=== PATIENT | female | born 1955 | race Caucasian/White ===

== ENCOUNTER 2022-06-27 08:02 | Outpatient (CLI) | payer MEDICARE, SELFPAY ==
--- NOTE | 2022-06-27 08:13 | AAVD_ITS ---
Reason For Study: Stricture of Artery Aorta Measurements Aorta Doppler Measurements Proximal aorta measures1.80cm x 1.72cm. in cross- Peak systolic flow velocities within the proximal sectional axis. aorta measure 77 cm/sec. Proximal aorta measures1.95cm. in longitudinal Peak systolic flow velocities within the mid aorta axis. measure 104 cm/sec. Mid aorta measures1.84cm x 1.98cm. in cross- Peak systolic flow velocities within the distal sectional axis. aorta measure 38 cm/sec. Mid aorta measures1.88cm. in longitudinal axis. Distal aorta measures2.07cm x 2.08cm. in cross- sectional axis. Distal aorta measures1.77cm. in longitudinal axis. Left Iliac Artery Left iliac artery measures 0.78cm x 0.79 cm. in the cross-sectional axis. Left iliac artery measures 0.67 cm. in the longitudinal axis. Peak systolic velocity in the left iliac artery measures 290 cm/sec. Right Iliac Artery Right iliac artery measures 0.87cm x 0.87 cm. in the cross-sectional axis. Right iliac artery measures 0.78 cm. in the longitudinal axis. Peak systolic velocity in the right iliac artery measures 72 cm/sec. Procedure Aorta IVC Iliac vasculature or bypass grafts [id number]. Exam performed in department. VL/Abd Aortic/IVC Duplex scan Interpretation Summary No aortoiliac aneurysm. Left common iliac with severe stenosis. Ordering Physician: Santiago Ly Referring Physician: Danielle Leonardo Performed By: Savi Fine, ALAYNACS, RVT
--- NOTE | 2022-06-27 08:13 | CDU_ITS ---
Reason For Study: Stenosis Rt. Velocities/BP Lt. Velocities/BP Prox CCA 70/19 cm/sec. Prox CCA 97/27 cm/sec. Mid CCA 62/20 cm/sec. Mid CCA 72/18 cm/sec. Dist CCA 53/21 cm/sec. Dist CCA 65/24 cm/sec. Prox ICA 50/20 cm/sec. Prox ICA 57/22 cm/sec. Mid ICA 69/24 cm/sec. Mid ICA 78/23 cm/sec. Dist ICA 82/34 cm/sec. Dist ICA 116/30 cm/sec. Rt. ICA/CCA = 1.3. Lt. ICA/CCA = 1.6. Prox ECA 66/9 cm/sec. Prox ECA 50/10 cm/sec. Rt. Vert. 52/20 cm/sec. Lt. Vert. 59/23 cm/sec. Right Extracranial There is intimal thickening but no significant atherosclerotic plaque noted in the right common carotid artery. There is homogeneous, smooth atherosclerotic plaque noted in the right internal carotid artery. There is intimal thickening but no significant atherosclerotic plaque noted in the right external carotid artery. Antegrade flow is noted in the right vertebral artery. Left Extracranial There is heterogeneous, smooth atherosclerotic plaque noted in the left common carotid artery. There is heterogeneous, irregular atherosclerotic plaque noted in the left internal carotid artery. There is intimal thickening but no significant atherosclerotic plaque noted in the left external carotid artery. Antegrade flow is noted in the left vertebral artery. Procedure Carotid Duplex 12949. This is a Carotid Duplex examination using B-mode, color flow and specral Doppler. Exam performed in department. VL/Carotid Duplex Ultrasound Interpretation Summary Mild (<50%) stenosis right extracranial internal carotid. Mild (<50%) stenosis left extracranial internal carotid. Flow within the vertebral arteries is antegrade bilaterally. Ordering Physician: Santiago Ly Referring Physician: Danielle Leonardo Performed By: Savi Fine, RDCS, RVT
--- NOTE | 2022-06-27 08:14 | ADUL_ITS ---
Reason For Study: Stricture of Artery Left Velocities Ext Iliac Artery, dist = 36 cm./sec. Common Femoral Artery, mid = 54 cm./sec. Supf. Femoral Artery, prox = 74 cm./sec. Supf. Femoral Artery, mid = 50 cm./sec. Supf. Femoral Artery, dist = 38 cm./sec. Profunda Femoral Artery = 46 cm./sec. Popliteal Artery, mid = 33 cm./sec. Ant.Tibial Artery, prox = 24 cm./sec. Ant Tibial Artery, mid = 22 cm./sec. Ant. Tibial Artery, distal = 20 cm./sec. Post. Tibial Artery, prox = 21 cm./sec. Post Tibial Artery, mid = 17 cm./sec. Post Tibial Artery, dist. = 14 cm./sec. Peroneal Artery, prox = 15 cm./sec. Peroneal Artery, mid = 16 cm./sec. Peroneal Artery,dist. = 12 cm./sec. Procedure Exam performed in department. / Art Duplex Unilat Lower Ext Interpretation Summary Left leg with no stenosis seen. Ordering Physician: Santiago Ly Referring Physician: Danielle Leonardo Performed By: Savi Fine, EMELI, RVT
--- NOTE | 2022-06-27 08:14 | ART_ITS ---
Reason For Study: PAD Procedure A bilateral lower extremity continuous wave Doppler with analog waveform analysis and ankle brachial indexes. Left Segmental Pressures Left brachial= 129mmHg. Left posterior tibial artery = 91mmHg. Left dorsalis pedis artery = 88mmHg. Left digit = 61 mmHg. Right Segmental Pressures Right brachial= 129mmHg. Right posterior tibial artery = 119mmHg. Right dorsalis pedis artery = 115mmHg. Right digit = 87 mmHg. Indices The right ankle brachial index by the posterior tibial artery is 0.92. The right ankle brachial index by the dorsalis pedis is 0.89. The right digital-brachial index is 0.67. The left ankle brachial index by the posterior tibial artery is 0.71. The left ankle brachial index by the dorsalis pedis is 0.68. The left digital-brachial index is 0.47. VL/Ankle Brachial Index Interpretation Summary Right normal flow and triphasic and PAT 0.92. Left biphasic and PAT 0.71. Ordering Physician: Santiago Ly Referring Physician: Danielle Leonardo Performed By: Savi Fine RDJAMEEL/RVT
== END 2022-06-27 23:59 | disposition home or self-care (01) ==
PROVIDERS: Referring Provider Surgery Vascular Surgery; Visit Provider Surgery Vascular Surgery
DX: I77.1 Stricture of artery (principal); I73.9 Peripheral vascular disease, unspecified; I65.23 Occlusion and stenosis of bilateral carotid arteries; R09.89 Other specified symptoms and signs involving the circulatory and respiratory systems
CPT/HCPCS: 93880; 93922; 93926; 93978

== ENCOUNTER → 2022-09-10 | Outpatient (CLI) | payer MEDICARE, SELFPAY ==
[2022-09-10 12:32] LABS: BUN 12 mg/dL (7-18); EST Glomerular Filtration Rate 107 mL/min (>60); Est Glom Filt Rate - Afr Amer 129 mL/min (>60)
== END | disposition home or self-care (01) ==
LOC: LAB 11:25
PROVIDERS: Referring Provider Surgery Vascular Surgery; Visit Provider Surgery Vascular Surgery
DX: Z01.818 Encounter for other preprocedural examination (principal)
CPT/HCPCS: 36415; 82565; 84520

== ENCOUNTER → 2022-09-17 | Outpatient (CLI) | payer MEDICARE, SELFPAY ==
--- NOTE | 2022-09-17 17:12 | CT_ITS ---
STUDY: CTA OF THE ABDOMINAL AORTA AND BILATERAL LOWER EXTREMITIES REASON FOR EXAM: Female, 67 years old. PAD, bilateral leg pain RADIATION DOSAGE (If Supplied By Facility): CTDIvol = ( 6.06 ) mGy, DLP = ( 824.69 ) mGycm TECHNIQUE: Axial CT angiography multi-detector data acquisition was obtained from the dome of the liver to the level of the ankles following intravenous administration of IV 75mL Isovue-370. Axial images and MIP images were reconstructed from the axial data set. Post-processing of the angiographic images was performed, with multiplanar reformation and 3D reconstruction. Individualized dose optimization techniques were used for this CT. TECHNICAL QUALITY: Good COMPARISON: None. Descriptors of Narrowing: None (0%) Mild (< 50%) Moderate (50-70%) Severe (70-90%) Subtotal/Total Occlusion (90-100%) Non-Evaluable (technically non-diagnostic FINDINGS: The patient is status post cholecystectomy. Abdominal aorta: Mildly dilated abdominal aortic aneurysm with a transverse dimension of 2.5 cm. This evidence for irregular mural plaque formation. Celiac and superior mesenteric arteries: No demonstrated narrowing. Inferior mesenteric artery: No demonstrated narrowing. Right renal artery(arteries): No demonstrated narrowing. Left renal artery(arteries): No demonstrated narrowing. Right common iliac artery: Moderate degree of calcific plaques with multiple focal areas of stenoses. Right external iliac artery: Multiple stenotic calcific plaques. Right internal iliac artery: No demonstrated narrowing. Left common iliac artery: Moderate degree of calcific plaques with multiple areas of the tight stenoses. Left external iliac artery: Multiple calcific plaques with multiple areas of tight stenoses. Left internal iliac artery: No demonstrated narrowing. RIGHT LOWER EXTREMITY Right common femoral artery: No demonstrated narrowing. Right profundus femoris: No demonstrated narrowing. Right superficial femoral: Focal minimally stenotic plaque at the origin of the superficial femoral artery. Right popliteal artery: No demonstrated narrowing. Right tibioperoneal trunk: No demonstrated narrowing. Right anterior tibial artery: No demonstrated narrowing. Right posterior tibial artery: No demonstrated narrowing. Right peroneal artery: No demonstrated narrowing. LEFT LOWER EXTREMITY Left common femoral artery: No demonstrated narrowing. Left profundus femoris: No demonstrated narrowing. Left superficial femoral: No demonstrated narrowing. Left popliteal artery: No demonstrated narrowing. Left tibioperoneal trunk: No demonstrated narrowing. Left anterior tibial artery: No demonstrated narrowing. Left posterior tibial artery: No demonstrated narrowing. Left peroneal artery: No demonstrated narrowing. CT/CTA Abd w/Runoff W/WO Contrast IMPRESSION: Focally dilated abdominal aorta as described with mural thrombus. Marked degree of poststenotic calcific plaques involving the right and left common iliac and external iliac arteries. Electronically Signed: Raji Garcia MD at 14:36 EDT ,
== END | disposition home or self-care (01) ==
PROVIDERS: Visit Provider Surgery Vascular Surgery
DX: I73.9 Peripheral vascular disease, unspecified (principal); M79.605 Pain in left leg
CPT/HCPCS: 75635; Q9967

== ENCOUNTER → 2022-11-26 | Outpatient (CLI) | payer MEDICARE, SELFPAY ==
--- NOTE | 2022-11-26 09:20 | AAVD_ITS ---
Reason For Study: Atherosclerosis Aorta Measurements Aorta Doppler Measurements Proximal aorta measures2.06 x 1.98cm. in cross- Peak systolic flow velocities within the proximal sectional axis. aorta measure 90.4 cm/sec. Proximal aorta measures2.00cm. in longitudinal Peak systolic flow velocities within the mid aorta axis. measure 61.4 cm/sec. Mid aorta measures2.15 x 2.16cm. in cross- Peak systolic flow velocities within the distal sectional axis. aorta measure 129.3 cm/sec. Mid aorta measures2.21cm. in longitudinal axis. Distal aorta measures1.53 x 1.52cm. in cross- sectional axis. Distal aorta measures1.51cm. in longitudinal axis. Left Iliac Artery Left iliac artery measures 0.64 x 0.75 cm. in the cross-sectional axis. Left iliac artery measures 0.72 cm. in the longitudinal axis. Peak systolic velocity in the left iliac artery measures 96.7 cm/sec. Right Iliac Artery Right iliac artery measures 0.70 x 0.74 cm. in the cross-sectional axis. Right iliac artery measures 0.77 cm. in the longitudinal axis. Peak systolic velocity in the right iliac artery measures 72.9 cm/sec. Procedure Aorta IVC Iliac vasculature or bypass grafts [id number]. The exam was of poor technical quality due to patient not NPO, acoustic shadowing and excessive bowel gas. Exam performed in department. VL/Abd Aortic/IVC Duplex scan Interpretation Summary No aortoiliac aneurysm or stenosis seen. Ordering Physician: Santiago Ly Referring Physician: Danielle Leonardo Performed By: Garrick Appiah RVT
--- NOTE | 2022-11-26 09:20 | ART_ITS ---
Reason For Study: Bilateral Leg Pain Procedure A bilateral lower extremity continuous wave Doppler with analog waveform analysis and ankle brachial indexes. Left Segmental Pressures Left brachial= 132mmHg. Left posterior tibial artery = 85mmHg. Left dorsalis pedis artery = 94mmHg. The left posterior tibial artery waveforms are biphasic. The left dorsalis pedis waveforms are biphasic. Right Segmental Pressures Right brachial= 133mmHg. Right posterior tibial artery = 128mmHg. Right dorsalis pedis artery = 124mmHg. The right posterior tibial artery waveforms are biphasic. The right dorsalis pedis waveforms are triphasic. Indices The right ankle brachial index by the posterior tibial artery is 0.96. The right ankle brachial index by the dorsalis pedis is 0.93. The left ankle brachial index by the posterior tibial artery is 0.64. The left ankle brachial index by the dorsalis pedis is 0.71. VL/Ankle Brachial Index Interpretation Summary Right normal at rest with PAT 0.96 and left mild with PAT 0.71. Ordering Physician: Santiago Ly Referring Physician: Danielle Leonardo Performed By: Garrick Appiah RVT
== END | disposition home or self-care (01) ==
PROVIDERS: Referring Provider Surgery Vascular Surgery; Visit Provider Surgery Vascular Surgery
DX: M79.605 Pain in left leg (principal); I73.9 Peripheral vascular disease, unspecified; I70.90 Unspecified atherosclerosis; M79.604 Pain in right leg; Z48.812 Encounter for surgical aftercare following surgery on the circulatory system
CPT/HCPCS: 93922; 93978